=== PATIENT | male | born 1980 | race Two or more races ===

== ENCOUNTER 2020-02-05 18:36 | Emergency (ER) | payer MEDICAID ==
[~2020-02-05] VITALS: Ht 188 cm; Wt 111.3 kg
[2020-02-05 18:37] VITALS: BP 135/95
== END 2020-02-05 20:13 | disposition left against medical advice (07) ==
LOC: ER 18:37
DX: M25.562 Pain in left knee (principal); Z53.21 Procedure and treatment not carried out due to patient leaving prior to being seen by health care provider

== ENCOUNTER 2024-01-16 10:53 | Emergency (ER) | payer MEDICAID ==
[~2024-01-16] VITALS: Ht 188 cm; Wt 117.3 kg
[2024-01-16 11:08] VITALS: BP 141/95; PULSE 80; RESP 18; TEMP 98; O2SAT 98
[2024-01-16] MEDS: povidone-iodine 120ml topical solution TP ONE (11:24)
[2024-01-16] MEDS: CefTRIAXone 1000mg IM Kit (w/lidocaine diluent) IM ONE (11:25)
[2024-01-16] MEDS ORDERED: CEPH-585 PO (11:32)
[2024-01-16] MEDS ORDERED: SULF1TAB49 PO (11:32)
== END 2024-01-16 12:02 | disposition home or self-care (01) ==
LOC: ER 10:54
DX: L02.413 Cutaneous abscess of right upper limb (principal); L08.9 Local infection of the skin and subcutaneous tissue, unspecified
CPT/HCPCS: 96372; 99283; J0696